=== PATIENT | female | born 1965 | race Caucasian/White ===

== ENCOUNTER 2016-11-26 01:30 | Emergency (ER) | payer MEDICAID ==
[2016-11-26 01:47] VITALS: PULSE 68; RESP 16; TEMP 97.6; O2SAT 100
--- NOTE | 2016-11-26 02:33 | C.PDOC ---
History Of Present Illness The patient is a 51yo female with history of anxiety, presents to the ED for evaluation after she woke up from her sleep feeling shaky. She states she checked her blood pressure at home and was elevated. She states she took Xanax for anxiety and came to the ED. She reports feeling a little better but is concerned because of her "shaking". She denies any chest pain, shortness of breath, palpitations, headache, weakness, numbness or dizziness. Time Seen by Provider: 11/26/16 02:16 Chief Complaint (Nursing): High Blood Pressure History Per: Patient History/Exam Limitations: no limitations Onset/Duration Of Symptoms: Mins Current Symptoms Are (Timing): Gone Associated Symptoms: denies: Chest Pain, Dyspnea, Dizziness, Blurred Vision, Focal Weakness, Headache Recent travel outside of the [place]: No Additional History Per: Patient Past Medical History Reviewed: Historical Data, Nursing Documentation, Vital Signs Vital Signs: Last Vital Signs Temp 97.6 F 11/26/16 01:42 Pulse 68 11/26/16 02:41 Resp 16 11/26/16 02:41 BP 117/77 11/26/16 02:41 Pulse Ox 100 11/26/16 02:55 - Medical History PMH: Anemia, Anxiety, Gall Bladder Disease, HTN, Hypothyroidism Denies: Chronic Kidney Disease Surgical History: Cholecystectomy - [facility] Procedures INJECT/INFUSE NEC (06/25/13) Family History: States: Unknown Family Hx, [place], CAD - Social History Hx Tobacco Use: No Hx Alcohol Use: No Hx Substance Use: No - Immunization History Hx Tetanus Toxoid Vaccination: No Hx Influenza Vaccination: No Hx Pneumococcal Vaccination: No Review Of Systems Constitutional: Positive for: Chills, Other ("shaking") Cardiovascular: Positive for: Other (elevated blood pressure). Negative for: Chest Pain, Palpitations Respiratory: Negative for: Shortness of Breath Neurological: Negative for: Weakness, Numbness, Headache, Dizziness Physical Exam - Physical Exam Appears: Non-toxic, No Acute Distress, Other (mildly anxious appearing) Skin: Warm, Dry Head: Atraumatic, Normacephalic Eye(s): bilateral: Normal Inspection Neck: Supple Chest: Symmetrical Cardiovascular: Rhythm Regular Respiratory: Normal Breath Sounds Gastrointestinal/Abdominal: Bowel Sounds, Soft, No Tenderness Extremity: Normal ROM, No Deformity, No Swelling Neurological/Psych: Oriented x3, Normal Speech, Normal Cognition ED Course And Treatment O2 Sat by Pulse Oximetry: 100 (RA) Pulse Ox Interpretation: Normal Medical Decision Making Medical Decision Making: Time: 0200 Impression: 51yo female with chills and elevated blood pressure at home Plan: -- Patient asymptomatic in the ED, blood pressure within normal limits. Patient is stable for discharge home. Disposition Counseled Patient/Family Regarding: Diagnosis, Need For Followup, Rx Given - Disposition Disposition: HOME/ ROUTINE Disposition Time: 02:31 Condition: STABLE Additional Instructions: Please follow up with PMD Continue current medications Keep yourself hydrated Instructions: Anxiety (ED) Forms: [employer]TALK (Romanian) - Clinical Impression Clinical Impression: Anxiety - PA / DETAILER FURNITURE / Resident Statement MD/DO has reviewed & agrees with the documentation as recorded. MD/DO has examined the patient and agrees with the treatment plan. - Scribe Statement The provider has reviewed the documentation as recorded by the Scribe Jackie Jc All medical record entries made by the Scribe were at my direction and personally dictated by me. I have reviewed the chart and agree that the record accurately reflects my personal performance of the history, physical exam, medical decision making, and the department course for this patient. I have also personally directed, reviewed, and agree with the discharge instructions and disposition.
[2016-11-26 02:42] VITALS: BP 117/77
== END 2016-11-26 02:43 | disposition home or self-care (01) ==
LOC: C.ER 01:30
DX: F41.9 Anxiety disorder, unspecified (principal); I10 Essential (primary) hypertension

== ENCOUNTER 2017-02-01 17:52 | Observation (INO) | payer MEDICAID ==
--- NOTE | 2017-02-01 18:26 | C.PDOC ---
History Of Present Illness 51 y/o female presents to ED c/o mid-sternal chest pain described as burning sensation that started an hour prior to arrival. Denies fever, shortness of breath, or other complaints. Time Seen by Provider: 02/01/17 18:07 Chief Complaint (Nursing): Chest Pain History Per: Patient History/Exam Limitations: no limitations Onset/Duration Of Symptoms: Hrs Current Symptoms Are (Timing): Still Present Quality: Burning Associated Symptoms: denies: Nausea, Dyspnea, Diaphoresis, Syncope Modifying Factors: None Exacerbating Factors: None Alleviating Factors: None Recent travel outside of the [place]: No Additional History Per: Patient Past Medical History Reviewed: Historical Data, Nursing Documentation, Vital Signs Vital Signs: Last Vital Signs Temp 97.9 F 02/01/17 18:01 Pulse 77 02/01/17 18:01 Resp 20 02/01/17 18:01 BP 138/81 02/01/17 18:01 Pulse Ox 100 02/01/17 18:29 - Medical History PMH: Anemia, Anxiety, Gall Bladder Disease, HTN, Hypothyroidism Denies: Chronic Kidney Disease Surgical History: Cholecystectomy - [facility] Procedures INJECT/INFUSE NEC (06/25/13) Family History: States: Unknown Family Hx, [place], CAD - Social History Hx Tobacco Use: No Hx Alcohol Use: No Hx Substance Use: No - Immunization History Hx Tetanus Toxoid Vaccination: No Hx Influenza Vaccination: No Hx Pneumococcal Vaccination: No Review Of Systems Except As Marked, All Systems Reviewed And Found Negative. Constitutional: Negative for: Fever, Chills Cardiovascular: Positive for: Chest Pain. Negative for: Palpitations, Edema, Light Headedness Respiratory: Negative for: Cough, Shortness of Breath, Sputum Gastrointestinal: Negative for: Nausea, Vomiting, Abdominal Pain Neurological: Negative for: Headache, Dizziness Physical Exam - Physical Exam Appears: Non-toxic, No Acute Distress Skin: Normal Color, Warm, Dry Head: Atraumatic, Normacephalic Eye(s): bilateral: Normal Inspection Oral Mucosa: Moist Neck: Supple Chest: Symmetrical, No Tenderness Cardiovascular: Rhythm Regular, No Murmur Respiratory: Normal Breath Sounds, No Rales, No Rhonchi, No Wheezing Gastrointestinal/Abdominal: Soft, No Tenderness Back: No CVA Tenderness Extremity: Normal ROM, No Pedal Edema Neurological/Psych: Oriented x3, Normal Speech, Normal Cognition Gait: Steady ED Course And Treatment - Laboratory Results Result Diagrams: 02/01/17 18:35 02/01/17 18:35 ECG: Interpreted By Me, Viewed By Me ECG Rhythm: Sinus Rhythm ECG Interpretation: No Acute Changes Interpretation Of ECG: No acute ST wave changes. Occasional PVCs. Rate From EC (bpm) O2 Sat by Pulse Oximetry: 100 (RA) Pulse Ox Interpretation: Normal Medical Decision Making Medical Decision Making: cp r/o acs- Blood work, UA, EKG, CXR ordered and reviewed. Patient was given Zofran. 800: pt with atypiclal pain, however onset only 1 hour, will need repeat trop. dr salmon accepts Disposition - Disposition Disposition: HOSPITALIZED Disposition Time: 08:00 Condition: STABLE - Clinical Impression Clinical Impression: Chest pain - Scribe Statement The provider has reviewed the documentation as recorded by the Scribe Olga Diaz All medical record entries made by the Scribe were at my direction and personally dictated by me. I have reviewed the chart and agree that the record accurately reflects my personal performance of the history, physical exam, medical decision making, and the department course for this patient. I have also personally directed, reviewed, and agree with the discharge instructions and disposition. Decision To Admit - Pt Status Changed To: Hospital Disposition Of: Observation - . Bed Request Type: Telemetry Admitting Physician: Mook Salmon Patient Diagnosis: Chest pain
[2017-02-01 18:45] LABS: BASO % 0.7 % (0.0-2.0); EOS # 0.1 K/uL (0.0-0.7); EOS % 2.1 % (0.0-4.0); HEMATOCRIT 35.2 % (34.0-47.0); LYMPH # 2.9 K/uL (1.0-4.3); LYMPH % 40.7 % (20.0-40.0); MEAN CELL VOLUME 79.2 fL (81.0-99.0); MEAN CORPUSCULAR HEMOGLOBIN 26.2 pg (27.0-31.0); MEAN CORPUSCULAR HGB CONC 33.1 g/dL (33.0-37.0); MEAN PLATELET VOLUME 10.3 fL (7.2-11.7); MONO # 0.5 K/uL (0.0-0.8); MONO % 6.5 % (0.0-10.0); NRBC % 0.1 % (0.0-2.0); RED CELL DISTRIBUTION WIDTH 14.8 % (11.5-14.5)
[2017-02-01 18:47] LABS: TRANSITIONAL EPITHIAL < 1 /hpf (0-3); URINE BACTERIA RARE (<OCC); URINE BILIRUBIN NEGATIVE (NEGATIVE); URINE BLOOD NEGATIVE (NEGATIVE); URINE COLOR Colorless (YELLOW); URINE GLUCOSE (UA) NORMAL (Normal); URINE KETONE NEGATIVE (NEGATIVE); URINE LEUKOCYTE ESTERASE NEG Leu/uL (Negative); URINE PROTEIN 1+ mg/dL (NEGATIVE); URINE UROBILINOGEN NORMAL mg/dL (0.2-1.0); WBC URINE 1 /hpf (0-5)
[2017-02-01 18:53] LABS: ALB/GLOB RATIO 1.3 (1.0-2.1); ALKALINE PHOSPHATASE 101 U/L (38-126); ALT/SGPT 40 U/L (9-52); AST/SGOT 25 U/L (14-36); BILIRUBIN,TOTAL 0.7 mg/dL (0.2-1.3); BLOOD UREA NITROGEN 13 mg/dL (7-17); CALCIUM 8.7 mg/dl (8.6-10.4); CARBON DIOXIDE 26 mmol/L (22-30); CHLORIDE 98 mmol/L (98-107); GFR AFRICAN-AMERICAN > 60; GLUCOSE,RANDOM 91 mg/dL (65-105); POTASSIUM 3.9 mmol/L (3.6-5.2); SODIUM 133 mmol/L (132-148); TOTAL PROTEIN 7.7 g/dL (6.3-8.3)
--- NOTE | 2017-02-01 23:40 | CP.PCM.HP ---
History of Present Illness - History of Present Illness History of Present Illness: 51 y/o female presents to ED c/o mid-sternal chest pain described as burning sensation that started an hour prior to arrival. Denies fever, shortness of breath, or other complaints. Past Patient History - Infectious Disease Hx of Infectious Diseases: None - Past Medical History & Family History Past Medical History?: Yes - Past Social History Smoking Status: Never Smoked - CARDIAC Hx Hypertension: Yes - PULMONARY Hx Respiratory Disorders: No - NEUROLOGICAL Hx Neurological Disorder: No - HEENT Hx HEENT Problems: Yes (Rhinitis) - RENAL Hx Chronic Kidney Disease: No - ENDOCRINE/METABOLIC Hx Hypothyroidism: Yes - HEMATOLOGICAL/ONCOLOGICAL Hx Anemia: Yes - MUSCULOSKELETAL/RHEUMATOLOGICAL Hx Falls: No - GASTROINTESTINAL Hx Gall Bladder Disease: Yes - GENITOURINARY/GYNECOLOGICAL Hx Genitourinary Disorders: No - PSYCHIATRIC Hx Anxiety: Yes Hx Substance Use: No - SURGICAL HISTORY Hx Cholecystectomy: Yes - ANESTHESIA Hx Anesthesia: Yes Hx Anesthesia Reactions: No Hx Malignant Hyperthermia: No Meds Allergies/Adverse Reactions: Allergies Allergy/AdvReac Type Severity Reaction Status Date / Time No Known Allergies Allergy Verified 02/01/17 18:04 Results - Vital Signs Recent Vital Signs: Last Vital Signs Temp 97.7 F 02/01/17 20:54 Pulse 87 02/01/17 20:54 Resp 18 02/01/17 20:54 BP 136/72 02/01/17 20:54 Pulse Ox 100 02/01/17 20:54 - Labs Result Diagrams: 02/01/17 18:35 02/01/17 18:35 Labs: Laboratory Results - last 24 hr 02/01/17 02/01/17 02/01/17 18:35 18:35 18:35 WBC 7.0 RBC 4.45 Hgb 11.7 Hct 35.2 MCV 79.2 L MCH 26.2 L MCHC 33.1 RDW 14.8 H Plt Count 268 MPV 10.3 Neut % (Auto) 50.0 Lymph % (Auto) 40.7 H [place] % (Auto) 6.5 Eos % (Auto) 2.1 Baso % (Auto) 0.7 Neut # 3.5 Lymph # 2.9 [place] # 0.5 Eos # 0.1 Baso # 0.0 PT 11.7 INR 1.0 APTT 34 Sodium Potassium Chloride Carbon Dioxide Anion Gap BUN Creatinine Est GFR ( Amer) Est GFR (Non-Af Amer) Random Glucose Calcium Total Bilirubin AST ALT Alkaline Phosphatase Troponin I Total Protein Albumin Globulin Albumin/Globulin Ratio Lipase Urine Color Colorless Urine Clarity Clear Urine pH 7.0 Ur Specific [place] 1.004 Urine Protein 1+ H Urine Glucose (UA) Normal Urine Ketones Negative Urine Blood Negative Urine Nitrate Negative Urine Bilirubin Negative Urine Urobilinogen Normal Ur Leukocyte Esterase Neg Urine WBC (Auto) 1 Ur Squamous Epith Cells 1 Ur Transition Epith Cell < 1 Urine Bacteria Rare Urine HCG, Qual Negative 02/01/17 18:35 WBC RBC Hgb Hct MCV MCH MCHC RDW Plt Count MPV Neut % (Auto) Lymph % (Auto) [place] % (Auto) Eos % (Auto) Baso % (Auto) Neut # Lymph # [place] # Eos # Baso # PT INR APTT Sodium 133 Potassium 3.9 Chloride 98 Carbon Dioxide 26 Anion Gap 13 BUN 13 Creatinine 0.5 L Est GFR ( Amer) > 60 Est GFR (Non-Af Amer) > 60 Random Glucose 91 Calcium 8.7 Total Bilirubin 0.7 AST 25 ALT 40 Alkaline Phosphatase 101 Troponin I < 0.0120 Total Protein 7.7 Albumin 4.3 Globulin 3.4 Albumin/Globulin Ratio 1.3 Lipase 202 Urine Color Urine Clarity Urine pH Ur Specific [place] Urine Protein Urine Glucose (UA) Urine Ketones Urine Blood Urine Nitrate Urine Bilirubin Urine Urobilinogen Ur Leukocyte Esterase Urine WBC (Auto) Ur Squamous Epith Cells Ur Transition Epith Cell Urine Bacteria Urine HCG, Qual
[2017-02-02] MEDS ORDERED: Levothyroxine 75 MCG TAB PO SCH (06:30)
[2017-02-02 08:10] VITALS: PULSE 74; RESP 20; TEMP 97.3; O2SAT 100
--- NOTE | 2017-02-02 09:37 | RAD ---
PROCEDURE: CHEST RADIOGRAPH, 1 VIEW HISTORY: chest pain COMPARISON: Comparison is made to 03/23/2016 FINDINGS: LUNGS: No evidence of new infiltrate or consolidation in the lungs. PLEURA: No pneumothorax or pleural fluid seen. CARDIOVASCULAR: Normal. OSSEOUS STRUCTURES: No significant abnormalities. VISUALIZED UPPER ABDOMEN: Normal. OTHER FINDINGS: None. IMPRESSION: No active disease.
[2017-02-02] MEDS ORDERED: Enoxaparin 40 mg Syringe SC SCH (10:00)
[2017-02-02 10:03] VITALS: BP 124/86
--- NOTE | 2017-02-02 23:37 | CP.PCM.DIS ---
Provider - Provider Date of Admission: 02/01/17 19:44 Attending physician: Mook Salmon MD Hospital Course - Lab Results Lab Results: Most Recent Lab Values WBC 7.0 K/uL (4.8-10.8) 02/01/17 18:35 RBC 4.45 Mil/uL (3.80-5.20) 02/01/17 18:35 Hgb 11.7 g/dL (11.0-16.0) 02/01/17 18:35 Hct 35.2 % (34.0-47.0) 02/01/17 18:35 MCV 79.2 fL (81.0-99.0) L 02/01/17 18:35 MCH 26.2 pg (27.0-31.0) L 02/01/17 18:35 MCHC 33.1 g/dL (33.0-37.0) 02/01/17 18:35 RDW 14.8 % (11.5-14.5) H 02/01/17 18:35 Plt Count 268 K/uL (130-400) 02/01/17 18:35 MPV 10.3 fL (7.2-11.7) 02/01/17 18:35 Neut % (Auto) 50.0 % (50.0-75.0) 02/01/17 18:35 Lymph % (Auto) 40.7 % (20.0-40.0) H 02/01/17 18:35 [place] % (Auto) 6.5 % (0.0-10.0) 02/01/17 18:35 Eos % (Auto) 2.1 % (0.0-4.0) 02/01/17 18:35 Baso % (Auto) 0.7 % (0.0-2.0) 02/01/17 18:35 Neut # 3.5 K/uL (1.8-7.0) 02/01/17 18:35 Lymph # 2.9 K/uL (1.0-4.3) 02/01/17 18:35 [place] # 0.5 K/uL (0.0-0.8) 02/01/17 18:35 Eos # 0.1 K/uL (0.0-0.7) 02/01/17 18:35 Baso # 0.0 K/uL (0.0-0.2) 02/01/17 18:35 PT 11.7 SECONDS (9.7-12.2) 02/01/17 18:35 INR 1.0 02/01/17 18:35 APTT 34 SECONDS (21-34) 02/01/17 18:35 Sodium 133 mmol/L (132-148) 02/01/17 18:35 Potassium 3.9 mmol/L (3.6-5.2) 02/01/17 18:35 Chloride 98 mmol/L (98-107) 02/01/17 18:35 Carbon Dioxide 26 mmol/L (22-30) 02/01/17 18:35 Anion Gap 13 (10-20) 02/01/17 18:35 BUN 13 mg/dL (7-17) 02/01/17 18:35 Creatinine 0.5 mg/dL (0.7-1.2) L 02/01/17 18:35 Est GFR ( Amer) > 60 02/01/17 18:35 Est GFR (Non-Af Amer) > 60 02/01/17 18:35 Random Glucose 91 mg/dL (65-105) 02/01/17 18:35 Calcium 8.7 mg/dl (8.6-10.4) 02/01/17 18:35 Total Bilirubin 0.7 mg/dL (0.2-1.3) 02/01/17 18:35 AST 25 U/L (14-36) 02/01/17 18:35 ALT 40 U/L (9-52) 02/01/17 18:35 Alkaline Phosphatase 101 U/L (38-126) 02/01/17 18:35 Total Creatine Kinase 58 U/L (30-135) 02/02/17 11:25 CK-MB (Mass) 0.49 ng/mL (0.0-3.38) 02/02/17 11:25 Troponin I < 0.0120 ng/mL (0.00-0.120) 02/02/17 11:25 Total Protein 7.7 g/dL (6.3-8.3) 02/01/17 18:35 Albumin 4.3 g/dL (3.5-5.0) 02/01/17 18:35 Globulin 3.4 gm/dL (2.2-3.9) 02/01/17 18:35 Albumin/Globulin Ratio 1.3 (1.0-2.1) 02/01/17 18:35 Lipase 202 U/L (23-300) 02/01/17 18:35 Urine Color Colorless (YELLOW) 02/01/17 18:35 Urine Clarity Clear (Clear) 02/01/17 18:35 Urine pH 7.0 (5.0-8.0) 02/01/17 18:35 Ur Specific [place] 1.004 (1.003-1.030) 02/01/17 18:35 Urine Protein 1+ mg/dL (NEGATIVE) H 02/01/17 18:35 Urine Glucose (UA) Normal mg/dL (Normal) 02/01/17 18:35 Urine Ketones Negative mg/dL (NEGATIVE) 02/01/17 18:35 Urine Blood Negative (NEGATIVE) 02/01/17 18:35 Urine Nitrate Negative (NEGATIVE) 02/01/17 18:35 Urine Bilirubin Negative (NEGATIVE) 02/01/17 18:35 Urine Urobilinogen Normal mg/dL (0.2-1.0) 02/01/17 18:35 Ur Leukocyte Esterase Neg [place]/uL (Negative) 02/01/17 18:35 Urine WBC (Auto) 1 /hpf (0-5) 02/01/17 18:35 Ur Squamous Epith Cells 1 /hpf (0-5) 02/01/17 18:35 Ur Transition Epith Cell < 1 /hpf (0-3) 02/01/17 18:35 Urine Bacteria Rare (<OCC) 02/01/17 18:35 Urine HCG, Qual Negative (NEGATIVE) 02/01/17 18:35 Discharge Exam - Head Exam Head Exam: ATRAUMATIC, NORMAL INSPECTION, NORMOCEPHALIC - Eye Exam Eye Exam: Normal appearance - Respiratory Exam Respiratory Exam: Clear to PA & Lateral - Cardiovascular Exam Cardiovascular Exam: REGULAR RHYTHM, +S1, +S2 Discharge Plan - Follow Up Plan Condition: STABLE Disposition: HOME/ ROUTINE Instructions: Chest Pain (DC), Chest Wall Pain (GEN) Referrals: Allan Falcon MD [Medical Doctor] -
== END 2017-02-02 13:48 | disposition home or self-care (01) ==
LOC: C.ER 17:52 → C.9E 19:44 → C.6T 20:48
PROVIDERS: ADMIT Internal Medicine; ATTEND Internal Medicine
DX: R07.89 Other chest pain (principal); I10 Essential (primary) hypertension; E03.9 Hypothyroidism, unspecified; J31.0 Chronic rhinitis; Z90.49 Acquired absence of other specified parts of digestive tract
CPT/HCPCS: 36415; 71010; 80053; 81001; 83690; 84484; 84703; 85025; 85610; 85730; 96374; 99283; G0378; J2405